=== PATIENT | female | born 1995 | race Two or more races ===

== ENCOUNTER 2022-01-14 10:58 | Outpatient (CLI) | payer OTHER | END 2022-01-14 10:59 | disposition home or self-care (01) | LOC: SONOGRAMA 10:58 | PROVIDERS: ATTEND Pathology Anatomic Pathology & Clinical Pathology | DX: E04.1 Nontoxic single thyroid nodule (principal); D34 Benign neoplasm of thyroid gland ==

== ENCOUNTER 2022-03-01 14:11 | Emergency (ER) | payer OTHER ==
[~2022-03-01] VITALS: Ht 152.4 cm; Wt 55.8 kg
[2022-03-01] MEDS ORDERED: MEDROLPACK PO (18:00)
[2022-03-01] MEDS ORDERED: AMOX-CLAV 875-1 EACH PO (18:00)
[2022-03-01] MEDS ORDERED: CORTISPORIN EAR10 M1 OPHT (18:00)
[2022-03-01] MEDS ORDERED: CORTISPORIN-TC10 M1 OT (18:02)
== END 2022-03-01 18:40 | disposition home or self-care (01) ==
LOC: ER 14:11
DX: H66.91 Otitis media, unspecified, right ear (principal); K11.20 Sialoadenitis, unspecified